=== PATIENT | female | born 1960 | race Two or more races ===

== ENCOUNTER → 2016-08-29 | Outpatient (CLI) | payer OTHER ==
[~2016-08-29] MED LIST: GLIM1TAB2 PO; GLUC-149 PO; LOSA25TA5 PO; LOSA50TA6 PO; LOVA10TA PO; METF500T4 PO; MULT1TAB9 PO; PANT40GR PO; [UNRECOGNIZED DRUG - OTHER] PO; [UNRECOGNIZED DRUG - OTHER] PO; vitamin b-6 PO
[2016-08-29 17:23] LABS: ASPARTATE AMINO TRANSFERASE 22 U/L (15-37); BLOOD UREA NITROGEN 17 mg/dL (7-18)
== END | disposition home or self-care (01) ==
LOC: STAR 15:52
PROVIDERS: ATTEND Urology
DX: Z01.818 Encounter for other preprocedural examination (principal); N28.89 Other specified disorders of kidney and ureter
CPT/HCPCS: 36415; 80053; 81003; 85025; 87086

== ENCOUNTER 2016-09-04 05:16 | Inpatient (IN) | payer OTHER ==
[2016-08-29 15:49] VITALS: BP 154/95
[~2016-09-04] VITALS: Ht 157.5 cm; Wt 75.9 kg
[2016-09-04] VITALS (10 sets, daily range): BP systolic 110–174; BP diastolic 66–101
[2016-09-04] MEDS ORDERED: LACTATED RINGERS 1,000 ML IV SCH ×2 (06:02→13:00)
[2016-09-04] MEDS ORDERED: LIDOCAINE 1%, 2ML SQ PRN (06:30)
[2016-09-04] MEDS ORDERED: BUPIVACAINE/PF-EPI 0.5% 1:200K ONE ×2 (07:00→11:34)
[2016-09-04] MEDS ORDERED: THROMBIN 5,000 UNIT VIAL TP ONE (07:01)
[2016-09-04] MEDS ORDERED: MANNITOL PMX 20% 500 ML ONE (07:02)
[2016-09-04] MEDS ORDERED: MIDAZOLAM 1 MG/ML, 2ML ONE (07:19)
[2016-09-04] MEDS ORDERED: HYDROmorphone 2 MG/ML, 1ML ONE ×2 (07:19→13:11)
[2016-09-04] MEDS ORDERED: FENTANYL PF 250 MCG/5ML ONE (07:19)
[2016-09-04] MEDS ORDERED: ROCURONIUM 10 MG/ML ONE (07:49)
[2016-09-04] MEDS ORDERED: DEXAMETHASONE 4 MG/ML, 1ML ONE (07:49)
[2016-09-04] MEDS ORDERED: EPHEDRINE 50 MG/ML, 1ML ONE (07:49)
[2016-09-04] MEDS ORDERED: GLYCOPYRROLATE 0.2MG/1ML ONE (07:49)
[2016-09-04] MEDS ORDERED: KETAMINE 10 MG/ML, 20ML ONE ×2 (07:49→08:43)
[2016-09-04] MEDS ORDERED: CEFAZOLIN 1,000 MG ONE (07:49)
[2016-09-04] MEDS ORDERED: NEOSTIGMINE 1 MG/ML, 10ML ONE (07:49)
[2016-09-04] MEDS ORDERED: ONDANSETRON 2MG/ML, 2ML ONE (07:49)
[2016-09-04] MEDS ORDERED: PROPOFOL 10 MG/ML, 20ML ONE (07:49)
[2016-09-04] MEDS ORDERED: SUCCINYLCHOLINE 20 MG/ML, 10ML ONE (07:49)
[2016-09-04] MEDS ORDERED: ACETAMINOPHEN 325 MG TABLET PO PRN (08:30)
[2016-09-04] MEDS ORDERED: ONDANSETRON 2MG/ML, 2ML IVPush PRN (08:30)
[2016-09-04] MEDS ORDERED: PROMETHAZINE 25 MG/ML, 1ML IV PRN (08:30)
[2016-09-04] MEDS ORDERED: LABETALOL 5MG/ML, 20ML IV PRN (08:30)
[2016-09-04] MEDS ORDERED: MIDAZOLAM 1 MG/ML, 2ML IV PRN (08:30)
[2016-09-04] MEDS ORDERED: FENTANYL PF 100 MCG/2ML IV PRN (08:30)
[2016-09-04] MEDS ORDERED: OXYcodone 5 MG/5 ML ORAL.SOL UDC PO PRN (08:30)
[2016-09-04] MEDS ORDERED: METOCLOPRAMIDE 5 MG/ML, 2ML IV PRN (08:30)
[2016-09-04] MEDS ORDERED: MEPERIDINE/PF 25MG/0.5ML IVPush PRN (08:30)
[2016-09-04] MEDS ORDERED: hydrALAzine 20 MG/ML, 1ML IV PRN (08:30)
[2016-09-04] MEDS: LACTATED RINGERS 1,000 ML IV SCH ×2 (13:01→23:40)
[2016-09-04] MEDS: HYDROmorphone 1 MG/ML, 1ML IV PRN ×2 (13:13→13:28)
[2016-09-04 14:09] LABS: BLOOD UREA NITROGEN 17 mg/dL (7-18)
[2016-09-04] MEDS ORDERED: PROMETHAZINE 25 MG/ML, 1ML IM PRN (15:30)
[2016-09-04] MEDS ORDERED: ONDANSETRON 2MG/ML, 2ML IV PRN ×2 (15:30→17:00)
[2016-09-04] MEDS: INSULIN REGULAR 100 UNITS/ML, 3ML VIAL SQ-INSULIN SCH ×2 (18:11→21:00)
[2016-09-04] MEDS: CEFAZOLIN PMX 1GM/50ML 50 ML IVPB SCH ×2 (18:11→23:39)
[2016-09-04] MEDS: SIMVASTATIN 5 MG TABLET PO SCH (20:35)
[2016-09-04] MEDS ORDERED: SIMVASTATIN 5 MG TABLET PO SCH (21:00)
[2016-09-05 04:00] VITALS: BP 170/65
[2016-09-05 06:04] LABS: BLOOD UREA NITROGEN 20 mg/dL (7-18)
[2016-09-05] MEDS: INSULIN REGULAR 100 UNITS/ML, 3ML VIAL SQ-INSULIN SCH ×4 (07:00→20:55)
[2016-09-05 07:20] VITALS: BP 124/73
[2016-09-05] MEDS ORDERED: TEMPLATE NON-FORMULARY MED. (Glucosam/Chond/Hyalu/Cf Borate (Move Free Joint Health Tablet PO SCH (09:00)
[2016-09-05] MEDS: MULTIVITAMINS/MINERALS TABLET PO SCH (09:23)
[2016-09-05] MEDS: LACTATED RINGERS 1,000 ML IV SCH (09:24)
[2016-09-05 13:42] VITALS: BP 131/78
[2016-09-05 19:55] VITALS: BP 130/76
[2016-09-05] MEDS: SIMVASTATIN 5 MG TABLET PO SCH (20:10)
[2016-09-05] MEDS ORDERED: ACETAMINOPHEN 325 MG TABLET PO PRN (20:30)
[2016-09-05] MEDS ORDERED: SIMVASTATIN 10 MG TABLET PO SCH (21:00)
[2016-09-06 00:29] VITALS: BP 115/72
[2016-09-06 02:28] LABS: PATH.CAST-FLAG NOT PRESENT; SPERM-FLAG NOT PRESENT; SRC-FLAG NOT PRESENT; XTAL-FLAG NOT PRESENT; YLC-FLAG NOT PRESENT
[2016-09-06 04:22] VITALS: BP 130/79
[2016-09-06 06:01] LABS: ASPARTATE AMINO TRANSFERASE 48 U/L (15-37); BLOOD UREA NITROGEN 17 mg/dL (7-18)
[2016-09-06] MEDS: INSULIN REGULAR 100 UNITS/ML, 3ML VIAL SQ-INSULIN SCH ×5 (08:14→20:19)
[2016-09-06 08:33] VITALS: BP 131/82
[2016-09-06] MEDS: MULTIVITAMINS/MINERALS TABLET PO SCH (09:26)
[2016-09-06 14:35] VITALS: BP 145/81
[2016-09-06 19:54] VITALS: BP 136/79
[2016-09-06] MEDS: OXYcodone/APAP 10/325MG TABLET PO PRN (20:18)
[2016-09-06] MEDS: SIMVASTATIN 5 MG TABLET PO SCH (20:18)
[2016-09-07 02:38] VITALS: BP 123/78
[2016-09-07 06:14] LABS: ASPARTATE AMINO TRANSFERASE 40 U/L (15-37); BLOOD UREA NITROGEN 21 mg/dL (7-18)
[2016-09-07] MEDS: INSULIN REGULAR 100 UNITS/ML, 3ML VIAL SQ-INSULIN SCH ×2 (07:00→11:09)
[2016-09-07] MEDS: MULTIVITAMINS/MINERALS TABLET PO SCH (07:39)
[2016-09-07 08:21] VITALS: BP 123/75
[2016-09-07] MEDS: OXYcodone/APAP 10/325MG TABLET PO PRN (10:23)
[2016-09-07] MEDS ORDERED: CIPR500T87 PO (12:09)
[2016-09-07] MEDS ORDERED: OXYC-302 PO (12:10)
[2016-09-07] MEDS ORDERED: DOCU-30 PO (12:42)
[2016-09-08] MEDS ORDERED: LOSARTAN 25MG TABLET PO SCH (09:00)
== END 2016-09-07 12:55 | disposition home or self-care (01) | DRG 658 ==
LOC: OUT 05:16 → ORIP 12:42 → 4EST 14:10 → DCLOUNGE 09-07 12:37
PROVIDERS: ADMIT Urology; ATTEND Urology
PROC: 0TB00ZZ Excision of Right Kidney, Open Approach (ICD-10-PCS; principal; 2016-09-04 07:30)
PROC: 0T9B70Z Drainage of Bladder with Drainage Device, Via Natural or Artificial Opening (ICD-10-PCS; 2016-09-06)
DX: D41.01 Neoplasm of uncertain behavior of right kidney (principal); E11.9 Type 2 diabetes mellitus without complications; Z82.49 Family history of ischemic heart disease and other diseases of the circulatory system; Z87.891 Personal history of nicotine dependence; Z87.442 Personal history of urinary calculi; Z87.440 Personal history of urinary (tract) infections; Z79.899 Other long term (current) drug therapy; Z79.84 Long term (current) use of oral hypoglycemic drugs
CPT/HCPCS: 36415; 71010; 80048; 80053; 81001; 82570; 82962; 85014; 85018; 85025; 86850; 86900; 87040; 88307; 88331; C1729; C1767; J0690; J1100; J1170; J1815; J2250; J2405; J2704; J2710; J3010; J3490; C1760; J0330; J7120